=== PATIENT | female | born 1975 | race Caucasian/White ===

== ENCOUNTER 2018-10-23 09:52 | Inpatient (IN) | payer BC ==
[2018-10-23] MEDS ORDERED: Morphine Sulfate 2 mg/mL 1mL Syr IV STA (10:11)
[2018-10-23] MEDS ORDERED: Morphine Sulfate 2 mg/mL 1mL Syr ONE (10:16)
[2018-10-23 10:42] LABS: INR 0.88 (0.5-1.4)
[2018-10-23 10:45] LABS: % BASOPHILS 0.8 % (0.0-2.0); % EOSINOPHILS 1.6 % (0.0-5.0); % LYMPHOCYTES 23.3 % (20.0-50.0); % MONOCYTES 7.2 % (2.0-10.0); % NEUTROPHILS 67.1 % (40.0-80.0); ANION GAP 10.9 (7.0-16.0); BASOPHILE ABSOLUTE 0.1 Th/cumm (0-0.2); BUN - UREA NITROGEN 13 mg/dL (7-25); CALCIUM SERUM 9.3 mg/dL (8.6-10.3); CARBON DIOXIDE 23.9 mEq/L (21.0-31.0); CHLORIDE 102 mEq/L (98-107); CHOLESTEROL 208 mg/dL (<200); CREATININE - SERUM 0.9 mg/dL (0.6-1.2); CREATININE KINASE 29 U/L (30-223); EOSINOPHILE ABSOLUTE 0.1 Th/cmm (0.1-0.4); GFR AFRICAN-AMERICAN > 60.0 ml/min (>90); GFR NON AFRICAN-AMERICAN > 60.0 ml/min; GLUCOSE 102 mg/dL (70-105); HDL -HIGH DENSITY LIPOPROTEIN 55 mg/dL (23-92); HEMATOCRIT 36.7 % (41.0-60); HEMOGLOBIN 12.5 gm/dL (12-16); LYMPHOCYTE ABSOLUTE 1.7 Th/cmm (1.5-3.0); MEAN CELL VOLUME 86.1 fl (81-100); MEAN CORPUSCULAR HEMOGLOBIN 29.2 pg (27.0-31.0); MEAN CORPUSCULAR HGB CONC 33.9 pg (28.0-36.0); MONOCYTE ABSOLUTE 0.5 Th/cmm (0.3-1.0); NEUTROPHILE ABSOLUTE 4.9 Th/cmm (1.8-8.0); PLATELET COUNT 272 Th/cmm (150-400); POTASSIUM SERUM 3.8 mEq/L (3.5-5.1); RED BLOOD COUNT 4.26 Mil/cmm (3.80-5.10); RED CELL DISTRIBUTION WIDTH 12.1 % (11.5-20.0); SODIUM SERUM 133 mEq/L (136-145); TRIGLYCERIDES 316 mg/dL (<150); WHITE BLOOD COUNT 7.3 Th/cmm (4.8-10.8)
[2018-10-23 10:50] LABS: DDIMER QUANT < 100 ng/mL (100-400)
[2018-10-23] MEDS ORDERED: Aspirin 81mg Chewable Tab PO STA (11:04)
--- NOTE | 2018-10-23 11:10 | ED Physician Chart ---
ED Chief Complaint/HPI - Patient Information Date Seen:: 10/23/18 Time Seen:: 10:00 Chief Complaint:: Chest Pain History of Present Illness:: onset x 2 weeks of intermittent exertional chest pain and dyspnea; pt denies trauma, H/As, S/T, neck pain, Abd. Pain, cough, A/N/V/D/C, fever, chills, or urinary s/s Allergies:: Allergies Allergy/AdvReac Type Severity Reaction Status Date / Time No Known Allergies Allergy Verified 10/23/18 10:07 Vitals:: Vital Signs - 8 hr 10/23/18 10/23/18 10/23/18 10:09 10:11 10:25 Temp 97.7 F 98.2 F 98.2 F HR 69 71 72 RR 16 20 19 BP 116/76 110/68 110/68 O2 Sat % 97 Historian:: Patient Review:: Nurse's Note Reviewed, Old Chart Reviewed ED Review of Systems - Review of Systems General/Constitutional: No fever, No chills, No weight loss, No weakness, No diaphoresis, No edema, No loss of appetite Skin: No skin lesions, No rash, No bruising Head: No headache, No light-headedness Eyes: No loss of vision, No pain, No diplopia ENT: No earache, No nasal drainage, No sore throat, No tinnitus Neck: No neck pain, No swelling, No thyromegaly, No stiffness, No mass noted Cardio Vascular: No chest pain, No palpitations, No PND, No orthopnea, No edema Pulmonary: No SOB, No cough, No sputum, No wheezing GI: No nausea, No vomiting, No diarrhea, No pain, No melena, No hematochezia, No constipation, No hematemesis G/U: No dysuria, No frequency, No hematuria, No nacturia Director Of Development And Marketing: No vaginal discharge, No abnormal vaginal bleed, No contraction Musculoskeletal: No bone or joint pain, No back pain, No muscle pain Endocrine: No polyuria, No polydipsia Psychiatric: Prior psych history, Depression, Anxiety, No suicidal ideation, No homicidal ideation, No auditory hallucination, No visual hallucination Hematopoietic: No bruising, No lymphadenopathy Allergic/Immuno: No urticaria, No angioedema Neurological: No syncope, No focal symptoms, No weakness, No paresthesia, No headache, No seizure, No dizziness, No confusion, No vertigo ED Past Medical History - Past Medical History Obtainable: Yes Past Medical History: No significant medical hx Family History: None Social History: Non Smoker, No Alcohol, No Drug Use, Surgical History: None Psychiatricy History: Depression Medication: Reviewed Family Medical History - Family Member Mother History Unknown: Yes ED Physical Exam - Physical Examination General/Constitutional: Awake, Well-developed, well-nourished, Alert, No distress, GCS 15, Non-toxic appearing, Ambulatory Head: Atraumatic Eyes: Lids, conjuctiva normal, PERRL, EOMI Skin: Nl inspection, No rash, No skin lesions, No ecchymosis, Well hydrated, No lymphadenopathy ENMT: External ears, nose nl, TM canals nl, Nasal exam nl, Lips, teeth, gums nl , Oropharynx nl, Tonsils nl Neck: Nontender, Full ROM w/o pain, No JVD, No nuchal rigidity, No bruit, No mass, No stridor Respiratory: Nl effort/Exclusion, Clear to Auscultation, No Wheeze/Rhonchi/Rales Cardio Vascular: RRR, No murmur, gallop, rubs, NL S1 S2, Carotid/Femoral/Distal pulses equal bilaterally GI: No tenderness/rebounding/guarding, No organomegaly, No hernia, Normal BS's, Nondistended, No mass/bruits, No McBurney tenderness : No CVA tenderness Extremities: No tenderness or effusion, Full ROM, normal strength in all extremities, No edema, Normal digits & nails Neuro/Psych: Alert/oriented, DTR's symmetric, Normal sensory exam, Normal motor strength, Judgement/insight normal, Mood normal, Normal gait, No focal deficits Misc: Normal back, No paraspinal tenderness ED Labs/Radiology/EKG Results - Lab Results Results: Laboratory Tests 10/23/18 10/23/18 10/23/18 10:21 10:21 10:21 WBC 7.3 RBC 4.26 Hgb 12.5 Hct 36.7 L MCV 86.1 MCH 29.2 MCHC Differential 33.9 RDW 12.1 Plt Count 272 MPV 8.8 Neutrophils % 67.1 Lymphocytes % 23.3 Monocytes % 7.2 Eosinophils % 1.6 Basophils % 0.8 PT 9.3 L INR 0.88 D-Dimer < 100 L Sodium 133 L Potassium 3.8 Chloride 102 Carbon Dioxide 23.9 Anion Gap 10.9 BUN 13 Creatinine 0.9 Est GFR ( Amer) > 60.0 Est GFR (Non-Af Amer) > 60.0 BUN/Creatinine Ratio 14.4 Glucose 102 Calcium 9.3 Creatine Kinase 29 L Troponin I B-Natriuretic Peptide Triglycerides 316 H Cholesterol 208 H LDL Cholesterol Direct 132 HDL Cholesterol 55 Serum , Qual 10/23/18 10/23/18 10/23/18 10:21 10:21 10:21 WBC RBC Hgb Hct MCV MCH MCHC Differential RDW Plt Count MPV Neutrophils % Lymphocytes % Monocytes % Eosinophils % Basophils % PT INR D-Dimer Sodium Potassium Chloride Carbon Dioxide Anion Gap BUN Creatinine Est GFR ( Amer) Est GFR (Non-Af Amer) BUN/Creatinine Ratio Glucose Calcium Creatine Kinase Troponin I < 0.01 L B-Natriuretic Peptide 8.5 Triglycerides Cholesterol LDL Cholesterol Direct HDL Cholesterol Serum , Qual NEGATIVE Comments:: Reviewed - Radiology Results Comments:: NAD - EKG Interpretations Rate & Rhythm: NSR Comments:: non-specific st-t changes ED Septic Shock - . Is Septic Shock (SBP<90, OR Lactate>4 mmol\L) present?: No - <6hrs of presentation: Vital Signs: Vital Signs - 8 hr 10/23/18 10/23/18 10/23/18 10:09 10:11 10:25 Temp 97.7 F 98.2 F 98.2 F HR 69 71 72 RR 16 20 19 BP 116/76 110/68 110/68 O2 Sat % 97 ED Reassessment (Disposition) - Reassessment Reassessment Condition:: Improved - Diagnosis Diagnosis:: Chest Pain; Dyspnea; Angina Pectoris; Unstable Angina; HLD; Hyponatremia - Aftercare/Follow up Instructions Aftercare/Follow-Up Instructions:: Counseled pt regarding lab results/diagnosis & need follow up, Counseled pt & family regarding lab results/diagnosis & need follow up - Patient Disposition Discharge/Transfer:: Acute Care w/in this hosp Accepting Physician:: Dr. Lundy Time Called:: 1100 Time Responded:: 11:00 Admitted to:: Telemetry Spoke to:: Dr. Lundy Admitting Medical Physician:: Dr. Lundy Condition at Disposition:: Stable, Improved
[2018-10-23] MEDS ORDERED: Aspirin 81mg Chewable Tab ONE (11:22)
--- NOTE | 2018-10-23 11:44 | Diagnostic Imaging Report ---
Portable chest x-ray History: Pain Allowing for portable technique the heart size is normal. No focal pulmonary parenchymal processes. No hilar or mediastinal abnormalities. Impression: No acute abnormalities.
[2018-10-23 19:53] VITALS: BP 107/53
--- NOTE | 2018-10-23 21:28 | History & Physical ---
ADMIT DATE: 10/23/2018 CHIEF COMPLAINT: Chest pain for a few hours duration. HISTORY OF PRESENT ILLNESS: The patient is a 43-year-old female with long history of depression, anxiety disorder, presented to the Emergency Room with chest pain, evaluated by the ER physician, admitted to the hospital for more advanced treatment. The pain is at the substernal area. No nausea, no vomiting, no fever, no chills. She has cough for a few days. The patient is started on cardiac diet, nitroglycerin. Cardiac consultation obtained. The patient denies any history of coronary artery disease. PAST MEDICAL HISTORY: Chronic anxiety disorder and depression. PAST SURGICAL HISTORY: No surgery. ALLERGIES: None. MEDICATIONS: Wellbutrin, Seroquel, Xanax. SOCIAL HISTORY: No smoking, alcohol or drugs. FAMILY HISTORY: Noncontributory. MEDICATION: Follow admission reconciliation. REVIEW OF SYSTEMS: RENAL SYSTEM: No history of chronic renal disorder. CARDIOVASCULAR SYSTEM: No history of coronary artery disease. ENDOCRINE SYSTEM: No diabetes or thyroid problem. GASTROINTESTINAL SYSTEM: No upper or lower gastrointestinal bleed. NEUROLOGICAL SYSTEM: No seizure disorder. MUSCULOSKELETAL SYSTEM: No muscular dystrophy. HEMATOLOGIC SYSTEM: No bleeding tendencies. RESPIRATORY SYSTEM: No asthma. GENITOURINARY: No dysuria or hematuria. PHYSICAL EXAMINATION: GENERAL: She is awake, alert, oriented, not in pain or distress. VITAL SIGNS: Temperature 98.2, heart rate 67 and blood pressure 116/62. HEENT: Normocephalic. Pupils reacting equal to light and accommodation. Sclerae clear. NECK: Supple. Negative for lymphadenopathy, JVD or bruit. CHEST: Air bilaterally normal. No rhonchi or wheezing. HEART: S1, S2 normal. No murmur or gallop rhythm. ABDOMEN: Soft, bowel sounds positive. EXTREMITIES: No edema. NEUROLOGIC: She is awake, alert, oriented. No focal motor deficits. Cranial nerves 2 through 12 intact. LABORATORY DATA: White blood 7.3, hemoglobin 12.5, hematocrit 36.7 and platelet 272. INR is 0.88. Sodium is 133, potassium 3.8, BUN 13, creatinine 0.9. Troponin is less than 0.01. ASSESSMENT: 1. Chest pain. 2. History of chronic anxiety disorder. PLAN: The patient was admitted to the hospital under Dr. Lundy's service, started on cardiac diet, nitroglycerin sublingual 0.4 mg p.r.n. for chest pain, Toradol 15 IV q. 6 hours p.r.n. for pain. The patient will resume her home medication. CPK, troponin q. 8 hours x3. EKG in a.m. Dr. Yaniv Diallo consulted on the case. The patient is a full code. Lovenox 40 subcutaneously daily ordered. Case discussed with the patient and the at bedside. JOB# [id number]
[2018-10-24] MEDS ORDERED: Aspirin 81mg Chewable Tab PO SCH (09:00)
[2018-10-24] MEDS ORDERED: Enoxaparin 40 mg/0.4 mL 0.4mL Syr SUBQ SCH (09:00)
--- NOTE | 2018-10-24 11:21 | General Progress Note ---
Subjective - Review of Systems Service Date: 10/24/18 Subjective: Complaint of chest pain in epigastric area increased with deep breathing and movement Objective - Results Result Diagrams: 10/23/18 10:21 10/23/18 10:21 Recent Labs: Laboratory Last Values WBC 7.3 Th/cmm (4.8-10.8) 10/23/18 10:21 RBC 4.26 Mil/cmm (3.80-5.10) 10/23/18 10:21 Hgb 12.5 gm/dL (12-16) 10/23/18 10:21 Hct 36.7 % (41.0-60) L 10/23/18 10:21 MCV 86.1 fl (81-100) 10/23/18 10:21 MCH 29.2 pg (27.0-31.0) 10/23/18 10:21 MCHC Differential 33.9 pg (28.0-36.0) 10/23/18 10:21 RDW 12.1 % (11.5-20.0) 10/23/18 10:21 Plt Count 272 Th/cmm (150-400) 10/23/18 10:21 MPV 8.8 fl 10/23/18 10:21 Neutrophils % 67.1 % (40.0-80.0) 10/23/18 10:21 Lymphocytes % 23.3 % (20.0-50.0) 10/23/18 10:21 Monocytes % 7.2 % (2.0-10.0) 10/23/18 10:21 Eosinophils % 1.6 % (0.0-5.0) 10/23/18 10:21 Basophils % 0.8 % (0.0-2.0) 10/23/18 10:21 PT 9.3 SECONDS (9.5-11.5) L 10/23/18 10:21 INR 0.88 (0.5-1.4) 10/23/18 10:21 D-Dimer < 100 ng/mL (100-400) L 10/23/18 10:21 Sodium 133 mEq/L (136-145) L 10/23/18 10:21 Potassium 3.8 mEq/L (3.5-5.1) 10/23/18 10:21 Chloride 102 mEq/L (98-107) 10/23/18 10:21 Carbon Dioxide 23.9 mEq/L (21.0-31.0) 10/23/18 10:21 Anion Gap 10.9 (7.0-16.0) 10/23/18 10:21 BUN 13 mg/dL (7-25) 10/23/18 10:21 Creatinine 0.9 mg/dL (0.6-1.2) 10/23/18 10:21 Est GFR ( Amer) > 60.0 ml/min (>90) 10/23/18 10:21 Est GFR (Non-Af Amer) > 60.0 ml/min 10/23/18 10:21 BUN/Creatinine Ratio 14.4 10/23/18 10:21 Glucose 102 mg/dL (70-105) 10/23/18 10:21 Calcium 9.3 mg/dL (8.6-10.3) 10/23/18 10:21 Creatine Kinase 22 U/L (30-223) L 10/24/18 04:00 Troponin I < 0.01 ng/mL (0.01-0.05) L 10/24/18 04:00 B-Natriuretic Peptide 8.5 pg/mL (5.0-100.0) 10/23/18 10:21 Triglycerides 316 mg/dL (<150) H 10/23/18 10:21 Cholesterol 208 mg/dL (<200) H 10/23/18 10:21 LDL Cholesterol Direct 132 mg/dL (75-193) 10/23/18 10:21 HDL Cholesterol 55 mg/dL (23-92) 10/23/18 10:21 Serum , Qual NEGATIVE (NEGATIVE) 10/23/18 10:21 - Physical Exam Vitals and I&O: Vital Signs Temp 97.2 F 10/24/18 08:00 Pulse 57 10/24/18 08:00 Resp 18 10/24/18 10:00 BP 100/49 10/24/18 08:00 Pulse Ox 98 10/24/18 08:00 Intake & Output 10/23/18 10/24/18 10/24/18 18:59 06:59 18:59 Intake Total 550 Balance 550 Weight (lbs) 72.575 kg 72.575 kg Intake: Oral 550 Other: # Voids 2 4 Weight Source Bedscale Bedscale Active Medications: Current Medications Alprazolam (Xanax) 0.5 mg PO BID PRN; Protocol PRN Reason: Anxiety Stop: 12/22/18 21:02 Last Admin: 10/24/18 10:00 Dose: 0.5 mg Aspirin (Aspirin Chewable) 81 mg PO DAILY STEVE Stop: 12/23/18 08:59 Last Admin: 10/24/18 08:13 Dose: 81 mg Atorvastatin Calcium (Lipitor) 20 mg PO DAILY [facility]; Protocol Stop: 12/24/18 08:59 Benzonatate (Tessalon) 100 mg PO TID PRN PRN Reason: Cough Stop: 12/22/18 21:10 Bupropion HCl (Wellbutrin) 300 mg PO DAILY [facility]; Protocol Stop: 12/23/18 08:59 Last Admin: 10/24/18 08:12 Dose: 300 mg Enoxaparin Sodium (Lovenox) 40 mg SUBQ DAILY STEVE Stop: 12/23/18 08:59 Last Admin: 10/24/18 08:12 Dose: 40 mg Ibuprofen (Motrin) 800 mg PO Q6H PRN PRN Reason: Pain (Moderate) Stop: 12/22/18 19:22 Ketorolac Tromethamine (Toradol) 15 mg IVP Q6HR PRN PRN Reason: Chest Pain Stop: 10/28/18 12:26 Last Admin: 10/23/18 21:30 Dose: 15 mg Nitroglycerin (Nitrostat) 0.4 mg SL Q5MIN PRN PRN Reason: Chest Pain Stop: 12/22/18 12:27 Last Admin: 10/23/18 18:07 Dose: 0.4 mg Quetiapine Fumarate (Seroquel) 25 mg PO HS [facility]; Protocol Stop: 12/22/18 20:59 Last Admin: 10/23/18 21:30 Dose: 25 mg General: Alert, Oriented x3, No acute distress HEENT: Mucous membr. moist/pink Neck: Supple, JVD, +2 carotid pulse wo bruit (flat) Cardiovascular: Regular rate, Normal S1, Normal S2, Systolic murmurs Abdomen: Bowel sounds, Soft, Other (organomegaly) Extremities: Pulses (normal) Neurological: Normal gait, Normal speech, Strength at 5/5 X4 ext, Normal tone, Cranial nerves 3-12 NL, Reflexes 2+ Assessment/Plan - Assessment Assessment: Chest pain Anxiety Depression Hyperlipidemia Costochondritis - Plan Plan: Continue present management awaiting echocardiogram
[2018-10-25] MEDS ORDERED: Atorvastatin Calcium 10 MG TAB PO SCH (09:00)
--- NOTE | 2018-10-25 10:44 | Consultation ---
DATE OF CONSULTATION: 10/23/2018 PATIENT OF: Dr. Lundy. 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 Following this, the patient came to the Emergency Room. The pain increases with deep breathing and movement. PAST MEDICAL HISTORY: Anxiety and depression. FAMILY HISTORY: Unremarkable. SOCIAL HISTORY: No history of smoking, alcohol abuse. ALLERGIES: No known allergies. PHYSICAL EXAMINATION: VITAL SIGNS: Blood pressure 130/80, pulse 70, respirations 20. HEAD: Normocephalic. No lumps or bumps. EYES: Pupils equal, reactive to light. Fundi show AV nicking, sclerae white, conjunctivae pink. NECK: Carotid 2+. Normal upstroke. JVD flat. Thyroid not palpable. Lymph nodes not palpable. CHEST: Shows increased AP diameter. No kyphosis, scoliosis. LUNGS: Bilateral bronchovesicular breath sounds. HEART: PMI fifth intercostal space with lateral to midclavicular line. S1, S2, soft S3, S4. ABDOMEN: Soft. Liver, spleen not palpable. No organomegaly. Bowel sounds active. NEUROLOGIC: Unremarkable. EXTREMITIES: Peripheral pulses 2+. No pedal edema. CLINICAL IMPRESSION: The patient has costochondritis of the right sixth intercostal space. Anxiety disorder, depression. The patient's EKG unremarkable. Troponin level normal. PLAN: The patient is awaiting echocardiogram. The patient's condition discussed with the family at the bedside. JOB# [id number]
--- NOTE | 2018-10-25 17:34 | Cardiology ---
10/24/2018 M-MODE ECHOCARDIOGRAM: Mitral valve, anterior leaflet of mitral valve shows normal excursion, EF velocity. Posterior leaflet of the mitral valve shows normal excursion. Left ventricular posterior wall showed normal thickness, excursion. Interventricular septum showed normal thickness, excursion. Ejection fraction 65%. Left atrium normal. Aortic root shows normal dimension, normal excursion of aortic leaflets. CONCLUSION: Normal M-mode echo, ejection fraction 65%. 2D ECHO: Long axis view showed normal sized left ventricle with normal wall motion, mitral valve shows normal excursion. Left atrium normal. Aortic root shows normal dimension, normal excursion of aortic leaflets. Short axis view of mitral valve normal. Short axis view of aortic valve normal. Apical four chamber view showed normal sized left ventricle, left atrium, right ventricle, right atrium, tricuspid and mitral valve. Ejection fraction 65%. CONCLUSION: Normal 2D echo, ejection fraction 65%. Doppler study showed trace mitral regurgitation, trace tricuspid regurgitation, mild pulmonary regurgitation, right ventricular systolic pressure 31 mmHg. CONCLUSION: Trace mitral regurgitation, trace tricuspid regurgitation, mild pulmonary regurgitation, ejection fraction 65%. JOB# [id number]
== END 2018-10-24 18:31 | disposition home or self-care (01) | DRG 206 ==
LOC: ER 09:52 → TELE 11:20
PROVIDERS: ADMIT Family Medicine; ATTEND Family Medicine
DX: M94.0 Chondrocostal junction syndrome [Tietze] (principal); E87.1 Hypo-osmolality and hyponatremia; I20.0 Unstable angina; E78.5 Hyperlipidemia, unspecified; I20.9 Angina pectoris, unspecified; F41.9 Anxiety disorder, unspecified; F32.9 Major depressive disorder, single episode, unspecified; Z79.899 Other long term (current) drug therapy
CPT/HCPCS: 36415-UA; 71045-TC; 80048-TC; 80061-TC; 82550-TC; 83880-TC; 84484-TC; 84703-TC; 85025-TC; 85379-TC; 85610-TC; 93005; 94760; 96374; J1650; J1885; J2270; Z7610